=== PATIENT | female | born 1960 | race Caucasian/White ===

== ENCOUNTER 2019-01-23 23:12 | Emergency (ER) | payer BC ==
[2019-01-23] MEDS ORDERED: Lidocaine 1% with EPINEPHrine 1:100,000 20 ML MDV INJECT ONE (23:38)
[2019-01-23] MEDS ORDERED: Bacitracin Oint 1 GM U/D Packet TOP ONE (23:38)
--- NOTE | 2019-01-23 23:44 | EDM.PDOC ---
ED HPI GENERAL MEDICAL PROBLEM - General Chief Complaint: Lower Extremity Injury/Pain Stated Complaint: PT HURT RT KNEE Time Seen by Provider: 01/23/19 23:36 - History of Present Illness INITIAL COMMENTS - FREE TEXT/NARRATIVE: HISTORY AND PHYSICAL: History of present illness: The patient is a 59-year-old female who presents after turning too quickly and falling onto her right knee causing a laceration and pain. The patient not pass out or blackout and should not hit her head neck or back. She says that she only has pain at the wound but there is some soft tissue swelling and she would like the bone to be checked out as well. She states she is up-to-date on her tetanus and prior to these events had no systemic complaints Review of systems: As per history of present illness and below otherwise all systems reviewed and negative. Past medical history: As per history of present illness and as reviewed below otherwise noncontributory. Surgical history: As per history of present illness and as reviewed below otherwise noncontributory. Social history: No reported history of drug or alcohol abuse. Family history: As per history of present illness and as reviewed below otherwise noncontributory. Physical exam: General: Well-developed well-nourished female who is nontoxic and mildly overweight. Vital signs were noted by me HEENT: Atraumatic, normocephalic, negative for conjunctival pallor or scleral icterus, mucous membranes moist, throat clear, neck supple, nontender, trachea midline. Lungs: Clear to auscultation, breath sounds equal bilaterally, chest nontender. Heart: S1S2, regular rate and rhythm no overt murmurs Abdomen: Soft, nondistended, nontender. Negative for masses or hepatosplenomegaly. NABS. Pelvis: Stable nontender. Genitourinary: Deferred. Rectal: Deferred. Extremities: Atraumatic full range of motion of all extremities with the exception of the right knee where there is some soft tissue swelling and a 2.25 cm contused laceration seen area there is minimal oozing and the and laceration extended to the subcutaneous tissue. The patient can range of motion at the knee. There are no other distal or proximal tenderness defects or deformities. The legs are, negative for cords or calf pain. Neurovascular unremarkable. Neuro: Awake, alert, oriented. Cranial nerves II through XII unremarkable. Cerebellum unremarkable. Motor and sensory unremarkable throughout. Exam nonfocal. Diagnostics: X-ray right knee Therapeutics: Irrigation of laceration suture repair bacitracin and dressing per nursing Procedure note: After the wound was cleansed by nursing 1% lidocaine with epinephrine was infused in a local fashion and the wound was explored. No foreign bodies were appreciated. The skin edges were reapproximated using a total number of #5 sutures of 4-0 nylon suture in a simple interrupted fashion. The patient is aware that the tissue is very bruised. There were no complications and the patient tolerated the procedure well. Bacitracin and a dressing were placed by nursing and the patient was advised not to bend or move the knee for the next few days to ensure good wound healing and strength of wound healing. Impression: Fall with right knee laceration Definitive disposition and diagnosis as appropriate pending reevaluation and review of above. Right Knee Pain Score (Numeric/FACES): 4 - Related Data Allergies Allergy/AdvReac Type Severity Reaction Status Date / Time JIMBO Inhibitors Allergy Cough Verified 01/23/19 23:28 codeine Allergy Hives Verified 01/23/19 23:28 Home Meds: Home Meds Citalopram Hydrobromide [Celexa] 20 mg PO DAILY 10/09/14 [History] Levothyroxine Sodium [Synthroid] 25 mcg PO DAILY 01/23/19 [History] Past Medical History Cardiovascular History: Reports: Hypertension, Other (See Below) Other Cardiovascular History: extra heart beat [employer] History: Reports: Musculoskeletal History: Reports: Fracture Other Musculoskeletal History: R wrist Neurological History: Reports: Headaches, Chronic Psychiatric History: Reports: Anxiety Endocrine/Metabolic History: Reports: Hypothyroidism - Infectious Disease History Infectious Disease History: Reports: Chicken Pox, Influenza, Measles, Mononucleosis, Mumps - Past Surgical History Female Surgical History: Reports: Section Social & Family History - Family History Family Medical History: Noncontributory - Tobacco Use Smoking Status *Q: Never Smoker - Caffeine Use Caffeine Use: Reports: Coffee - Recreational Drug Use Recreational Drug Use: No Review of Systems - Review of Systems Review Of Systems: ROS reveals no pertinent complaints other than HPI. ED EXAM, GENERAL - Physical Exam Exam: See Below (see dictation) Course - Vital Signs Last Recorded V/S: Last Vital Signs Temp 36.0 C 01/23/19 23:26 Pulse 74 01/23/19 23:26 Resp 18 04/08/19 23:26 BP 145/62 H 01/23/19 23:26 Pulse Ox 97 01/23/19 23:26 - Orders/Labs/Meds Orders: Active Orders 24 hr Category Date Time Status Communication Order [RC] STAT Care 01/23/19 23:38 Active Knee 3V Rt [CR] Stat Exams 01/23/19 23:24 Taken Meds: Medications Discontinued Medications Generic Name Dose Route Start Last Admin Trade Name [place] PRN Reason Stop Dose Admin Bacitracin 1 dose 01/23/19 23:38 01/23/19 23:53 Bacitracin Oint 1 Gm TOP 01/23/19 23:39 1 dose ONETIME ONE Administration Lidocaine/Epinephrine 20 ml 01/23/19 23:38 01/23/19 23:53 Xylocaine 1% With Epinephrine 1:100,000 INJECT 01/23/19 23:39 20 ml ONETIME ONE Administration Departure - Departure Time of Disposition: 00:23 Disposition: Home, Self-Care 01 Condition: Good Clinical Impression: Laceration of right knee Qualifiers: Encounter type: initial encounter Qualified Code(s): S81.011A - Laceration without foreign body, right knee, initial encounter - Discharge Information Referrals: PCP,None [Primary Care Provider] - Forms: ED Department Discharge Additional Instructions: The following information is given to patients seen in the emergency department who are being discharged to home. This information is to outline your options for follow-up care. We provide all patients seen in our emergency department with a follow-up referral. The need for follow-up, as well as the timing and circumstances, are variable depending upon the specifics of your emergency department visit. If you don't have a primary care physician on staff, we will provide you with a referral. We always advise you to contact your personal physician following an emergency department visit to inform them of the circumstance of the visit and for follow-up with them and/or the need for any referrals to a consulting specialist. The emergency department will also refer you to a specialist when appropriate. This referral assures that you have the opportunity for followup care with a specialist. All of these measure are taken in an effort to provide you with optimal care, which includes your followup. Under all circumstances we always encourage you to contact your private physician who remains a resource for coordinating your care. When calling for followup care, please make the office aware that this follow-up is from your recent emergency room visit. If for any reason you are refused follow-up, please contact the [facility] emergency department at and ask to speak to the emergency department charge nurse. [facility] Primary care- Internal Medicine and Family [address] [address] Please keep the dressing that was placed on in the ED in place until 24 hours and then remove and cleanse with mild soap and water pat dry and apply bacitracin. Please cleanse and dress the area at least twice a day. After 2 days please stop the bacitracin and allow the area to be open to air. Sutures should be removed in 10 here in the ED or with your provider in the clinic. Return to ER as needed and as discussed - My Orders Last 24 Hours: My Active Orders 01/23/19 23:38 Communication Order [RC] STAT - Assessment/Plan Last 24 Hours: My Active Orders 01/23/19 23:38 Communication Order [RC] STAT
--- NOTE | 2019-01-24 00:33 | CR ---
Indication: Fall, laceration. Technique: Right knee 3 views Comparison: None Findings: Bones: Alignment is normal. No fractures or bone lesions. Joint spaces: Joint spaces are well maintained. No degenerative changes. No sign of joint effusion. Soft tissues: Unremarkable. Impression: Unremarkable right knee series. Dictated by Jamar Mahajan MD @ Jan 24 2019 12:29AM Signed by Dr. Jamar Mahajan @ Jan 24 2019 12:31AM
[2019-01-24 00:53] VITALS: BP 113/74
== END 2019-01-24 00:35 | disposition home or self-care (01) ==
LOC: MW.ED 23:12
DX: S81.011A Laceration without foreign body, right knee, initial encounter (principal); I10 Essential (primary) hypertension; F41.9 Anxiety disorder, unspecified; E03.9 Hypothyroidism, unspecified; Z79.899 Other long term (current) drug therapy; Z88.5 Allergy status to narcotic agent; Z91.09 Other allergy status, other than to drugs and biological substances; W19.XXXA Unspecified fall, initial encounter
CPT/HCPCS: 73562-26-RT; 73562-RT; 99283-25

== ENCOUNTER 2019-02-02 11:02 | Emergency (ER) | payer BC ==
[2019-02-02 11:19] VITALS: BP 120/81
== END 2019-02-02 11:24 | disposition left against medical advice (07) ==
LOC: MW.ED 11:02
DX: Z53.21 Procedure and treatment not carried out due to patient leaving prior to being seen by health care provider (principal)